=== PATIENT | female | born 1965 | race Caucasian/White ===

== ENCOUNTER 2016-10-28 12:21 | Emergency (ER) | payer BC ==
--- NOTE | 2016-10-28 13:36 | UC ---
Shortness of Breath HPI - HPI Summary HPI Summary: SHORTNESS OF BREATH AND CHEST HEAVINESS FOR 4 DAYS. FEELS WHEEZY. GETS WORSE IF SHE TALKS OR EXERTS HERSELF. BREAKS OUT INTO A SWEAT WITH EXERTION. DENIES NAUSEA. HAS HAD ANKLE/FOOT SWELLING FOR SEVERAL MONTHS. NO ORTHOPNEA. - History of Current Complaint Chief Complaint: UCRespiratory Stated Complaint: SOB Time Seen by Provider: 10/28/16 12:46 Hx Obtained From: Family/Cone Tender Onset/Duration: Gradual Onset, Lasting Days, Still Present Timing: Constant Current Severity: Moderate Dyspnea At: Exertion Aggrevating Factors: Movement Alleviating Factors: Nothing Associated Signs & Symptoms: Positive: Wheezing, Chest Pain Unrelated to Cough, Diaphoresis. Negative: Fever, Chills, Nasal Congestion, Dizzy, Calf Pain/ Swelling, Edema - Allergy/Home Medications Allergies/Adverse Reactions: Allergies Allergy/AdvReac Type Severity Reaction Status Date / Time No Known Allergies Allergy Verified 10/28/16 12:42 Home Medications: Home Medications Magnesium [Magnesium Elemental] 30 mg PO DAILY 10/28/16 [History Confirmed 10/28] [place]-3 Fatty Acids [[place] 3 1000 mg] 1 tab PO DAILY 10/28/16 [History Confirmed 10/28/16] PMH/Surg Hx/FS Hx/Imm Hx Previously Healthy: Yes - Surgical History Surgical History: None - Family History Known Family History: Positive: Hypertension - Social History Alcohol Use: Occasionally Substance Use Type: None Smoking Status (MU): Former Smoker Length of Time of Smoking/Using Tobacco: quit 3 yrs ago Review of Systems Constitutional: Negative Respiratory: Shortness Of Breath Cardiovascular: Chest Pain Gastrointestinal: Negative All Other Systems Reviewed And Are Negative: Yes Physical Exam Triage Information Reviewed: Yes Appearance: Well-Appearing, No Pain Distress, Well-Nourished Vital Signs: Initial Vital Signs Temp 98.2 F 10/28/16 12:35 Pulse 58 10/28/16 12:35 Resp 16 10/28/16 12:35 Pulse Ox 96 10/28/16 12:35 Vital Signs Reviewed: Yes Eyes: Positive: Conjunctiva Clear ENT: Positive: Hearing grossly normal Neck: Positive: Supple Respiratory: Positive: No respiratory distress, No accessory muscle use, Decreased breath sounds. Negative: Wheezing Cardiovascular Exam: Normal Abdomen Description: Positive: Soft Musculoskeletal: Positive: Edema @ - 1+ NON PITTING EDEMA BILATERAL FEET AND ANKLES Neurological: Positive: Alert Psychological: Positive: Age Appropriate Behavior Skin: Negative: rashes Diagnostics - EKG Cardiac Rate: Bradycardia - 56BPM Cardiac Rhythm: Sinus: Normal Ectopy: None ST Segment: Non-Specific - T-WAVE FLATTENING DIFFUSELY Shortness of Breath Dx - Course Course Of Treatment: ADVISED PT OF NEED FOR FURTHER EVALUATION AT FACILITY WITH HIGHER LEVEL OF CARE GIVEN SX OF DYSPNEA, CHEST HEAVINESS AND ANKLE SWELLING. CONCERN FOR ACUTE CARDIAC ETIOLOGY. PT DECLINES TRANSFER. DISCUSSED RISKS INCLUDING HEART FAILURE, [place], RESP DISTRESS, . PT STILL DECLINES TRANSFER. SIGNED OUT AMA. - Differential Dx/Diagnosis Provider Diagnoses: SOB/CP Discharge - Discharge Plan Condition: Stable Disposition: AGAINST MEDICAL ADVICE Referrals: Ariella Amaya MD [Medical Doctor] -
== END 2016-10-28 13:10 | disposition left against medical advice (07) ==
LOC: UCEAST 12:21
DX: R06.02 Shortness of breath (principal); R07.9 Chest pain, unspecified; Z87.891 Personal history of nicotine dependence
CPT/HCPCS: 93005; 99202; G0463